=== PATIENT | female | born 1965 | race Caucasian/White ===

== ENCOUNTER → 2019-02-18 | Outpatient (CLI) | payer BC | END | disposition home or self-care (01) | LOC: LABWHC1 15:36 | PROVIDERS: ATTEND Physician Assistant | DX: Z11.1 Encounter for screening for respiratory tuberculosis (principal) | CPT/HCPCS: 36415; 86480 ==

== ENCOUNTER → 2019-09-08 | Outpatient (CLI) | payer MEDICARE ==
--- NOTE | 2019-09-08 13:33 | XR ---
EXAMINATION TYPE: XR knee limited LT DATE OF EXAM: 09/08/2019 COMPARISON: NONE HISTORY: Pain TECHNIQUE: Two views are submitted. FINDINGS: Joint spaces are preserved. Osseous structures are intact. No acute fracture seen. Diffuse osteope marifer. IMPRESSION: 1. No acute fracture or dislocation.
--- NOTE | 2019-09-08 13:34 | XR ---
EXAMINATION TYPE: XR Hip Bilateral Complete DATE OF EXAM: 09/08/2019 COMPARISON: NONE HISTORY: Pain TECHNIQUE: 2 views submitted of each hip FINDINGS: There is no evidence of erosive change or acute fracture. Mild concentric narrowing of the joint space and mild hypertrophic change of the acetabulum. IMPRESSION: 1. Mild arthropathy correlate for femoral acetabular impingement.
== END | disposition home or self-care (01) ==
LOC: RADXRMAIN 12:48
PROVIDERS: ATTEND Family Medicine
DX: M25.551 Pain in right hip (principal); M12.852 Other specific arthropathies, not elsewhere classified, left hip; M12.851 Other specific arthropathies, not elsewhere classified, right hip; M25.552 Pain in left hip; M25.562 Pain in left knee
CPT/HCPCS: 73521

== ENCOUNTER → 2019-10-20 | Outpatient (CLI) | payer MEDICARE ==
[2019-10-20 11:17] LABS: Basophils # (A) 0.1 k/uL (0-0.2); Basophils % (A) 1 %; Eosinophils # (A) 0.2 k/uL (0-0.7); Eosinophils % (A) 3 %; HCT 47.6 % (34.0-46.0); HGB 15.7 gm/dL (11.4-16.0); Lymphocytes # (A) 1.6 k/uL (1.0-4.8); Lymphocytes % (A) 24 %; MCH 30.1 pg (25.0-35.0); MCHC 32.9 g/dL (31.0-37.0); Mean Platelet Volume 7.1; Monocytes # (A) 0.5 k/uL (0-1.0); Monocytes % (A) 7 %; Neutrophils # (A) 4.1 k/uL (1.3-7.7); Neutrophils % (A) 63 %; Platelet Count 326 k/uL (150-450); RBC 5.22 m/uL (3.80-5.40); RDW 14.5 % (11.5-15.5); WBC 6.5 k/uL (3.8-10.6)
[2019-10-20 11:22] LABS: MCV 91.3 fL (80.0-100.0)
[2019-10-20 17:16] LABS: African American GFR (CKD) 96.2 (60.0-200.0); Albumin 4.2 g/dL (3.80-4.90); Albumin/Globulin Ratio 2.1 (1.60-3.17); Anion Gap 4.1 mmol/L (4.00-12.00); BUN/Creat Ratio 8.75 Ratio (12.00-20.00); C Reactive Protein, High Sens 3.35 mg/L (0.000-3.000); Calcium 9.5 mg/dL (8.7-10.3); Carbon Dioxide 25.9 mmol/L (21.6-31.8); Potassium 4.7 mmol/L (3.5-5.5); Total Bilirubin 0.4 mg/dL (0.3-1.2); Total Protein 6.2 g/dL (6.2-8.2)
[2019-10-20 18:07] LABS: Cyclic Citrull Pep IgG Unit >300.0 U/mL; Cyclic Citrullinated Pep IgG POSITIVE (NEGATIVE)
[2019-10-20 18:19] LABS: Hepatitis B Core IgM Non-Reactive (Non-Reactive); Hepatitis B Surface AB- Quant 3.5 mIU/mL; Hepatitis B Surface Antibody Non-Reactive (Non-Reactive); Hepatitis B Surface Antigen Non-Reactive (Non-Reactive); Hepatitis C IgG Antibody Non-Reactive (Non-Reactive)
[2019-10-20 18:42] LABS: Erythrocyte Sedimentation Rate 6 mm/Hr (0-30)
== END | disposition home or self-care (01) ==
LOC: LABWHC1 09:53
PROVIDERS: ATTEND Internal Medicine Rheumatology
DX: M15.0 Primary generalized (osteo)arthritis (principal); M06.9 Rheumatoid arthritis, unspecified
CPT/HCPCS: 36415; 80053; 85025; 85652; 86038; 86141; 86200; 86431; 86480; 86704; 86705; 86706; 86803; 87340

== ENCOUNTER → 2019-11-12 | Outpatient (CLI) | payer MEDICARE ==
--- NOTE | 2019-11-12 14:02 | MR ---
MR left hip without contrast HISTORY: Colon carcinoma, hip pain Multiplanar multisequence imaging through the pelvis with small [id number] images through the left hip Correlation to plain film 09/08/2019 There is no sizable hip joint effusion. Bone marrow signal is normal. No evident erosive change, no f racture or dislocation. Articular cartilage signal is maintained. No evident labral tear. No tendon t ear evident. Origins of the hamstring musculature normal. There is no free fluid in the pelvis. No pe lvic adenopathy. Degenerative disc changes are present in the lower lumbar spine. Uterus and adnexal structures are maintained. Urinary bladder is normal. IMPRESSION: No evident hip abnormality. Degenerative disc changes are noted in the lumbar spine.
== END | disposition home or self-care (01) ==
LOC: RADMRIMAIN 12:41
PROVIDERS: ATTEND Internal Medicine Rheumatology
DX: M25.552 Pain in left hip (principal); M06.852 Other specified rheumatoid arthritis, left hip; Z79.52 Long term (current) use of systemic steroids

== ENCOUNTER 2021-04-10 07:15 | Emergency (ER) | payer MEDICARE ==
[2021-04-10 07:21] VITALS: TEMP 97.8
[2021-04-10] MEDS ORDERED: KETOROLAC 15 MG/ML 1 ML VIAL IVP STA (07:40)
[2021-04-10] MEDS ORDERED: SODIUM CHLORIDE 0.9% 1,000 ML IV STA (07:40)
[2021-04-10] MEDS ORDERED: diphenhydrAMINE 50 MG/ML 1 ML VIAL IVP STA (07:40)
[2021-04-10] MEDS ORDERED: MORPHINE SULFATE 4 MG/ML SYRINGE IV STA (07:40)
[2021-04-10] MEDS ORDERED: ONDANSETRON 4 MG/2 ML VIAL IVP STA (07:40)
[2021-04-10] MEDS ORDERED: FAMOTIDINE 20 MG/2 ML VIAL IV STA (07:41)
--- NOTE | 2021-04-10 07:51 | ED ---
General Adult HPI - General Chief complaint: Abdominal Pain Stated complaint: right side pain Source: patient, RN notes reviewed, old records reviewed Mode of arrival: ambulatory Limitations: no limitations - History of Present Illness Initial comments: Patient is a 55-year-old female with past medical history remarkable for rheumatoid arthritis, prior TIA with residual left-sided weakness, chronic shoulder pain who presents emergency Department complaining of right-sided flank pain. Pain started 10 days ago when she was evaluated here in the emergency department. Workup at that time was negative. She is told she may have a small kidney stone in the past. She states that since that time, she isthat the right flank pain appears to be moving towards her right lower quadrant. States continued nausea, as well as occasional episodes of nonbilious nonbloody emesis. Denies constipation. Has been having normal bowel movements that are nonbloody. Denies any hematuria, dysuria. Denies any breast vaginal discharge or bleeding. No prior history of abdominal surgeries. Denies any fevers, chills, sick contacts. His no other acute complaints at this time. Would Like to be reevaluated for continued abdominal pain.Denies any precipitating factor for her pain. Denies any known palliative or provocative factors. Denies any radiation from her lumbar spine. No recent heavy lifting. - Related Data Home Medications Medication Instructions Recorded Confirmed Multivitamins, Thera [Multivitamin] 1 tab PO DAILY 11/11/13 04/10/21 Cholecalciferol [Vitamin D3] 1,000 units PO DAILY 11/15/13 04/10/21 Citalopram Hydrobromide [CeleXA] 40 mg PO HS 12/03/13 04/10/21 Aspirin EC [Ecotrin] 325 mg PO DAILY 03/31/21 04/10/21 Atorvastatin [Lipitor] 10 mg PO HS 03/31/21 04/10/21 Cyanocobalamin (Vitamin B-12) 1,000 mcg PO DAILY 03/31/21 04/10/21 [Vitamin B-12] L.acidoph,Paracasei, B.lactis 1 cap PO DAILY 03/31/21 04/10/21 [Probiotic] Upadacitinib [Rinvoq] 15 mg PO DAILY 03/31/21 04/10/21 Ketorolac [Toradol] 10 mg PO Q8HR PRN 04/10/21 04/10/21 Metaxalone [Skelaxin] 800 mg PO QID PRN 04/10/21 04/10/21 Previous Rx's Medication Instructions Recorded Ondansetron Odt [Zofran Odt] 4 mg PO Q8HR PRN #10 tab 03/31/21 Dicyclomine [Bentyl] 10 mg PO TID PRN #21 capsule 04/10/21 Famotidine [Pepcid] 10 mg PO DAILY PRN 7 Days #7 tab 04/10/21 HYDROcodone/APAP 5-325MG [Amboy 5] 1 each PO Q6HR PRN 2 Days #8 tab 04/10/21 Mag Hydrox/Al Hydrox/Simeth 30 ml PO BID PRN #400 ml 04/10/21 [Maalox] Ondansetron Odt [Zofran Odt] 4 mg PO Q8HR PRN 3 Days #9 tab 04/10/21 Allergies Allergy/AdvReac Type Severity Reaction Status Date / Time tetracycline [Tetracycline] Allergy Dyspnea Verified 04/10/21 08:46 and Rash fentanyl AdvReac Nausea Verified 04/10/21 08:46 ANTIHISTAMINES AdvReac Rapid Uncoded 04/10/21 08:46 Heart Rate Review of Systems ROS Statement: Those systems with pertinent positive or pertinent negative responses have been documented in the HPI. Review of Systems: CONST: Denies fever EYES: Denies blurry vision ENT: Denies nasal congestion C/V: Denies Chest pain RESP: Denies shortness of breath GI: Endorses abdominal pain : Denies dysuria SKIN: Denies rash. MSK: Denies joint pain. NEURO: Denies headache ROS Other: All systems not noted in ROS Statement are negative. Past Medical History Past Medical History: CVA/TIA, Rheumatoid Arthritis (RA) Additional Past Medical History / Comment(s): STROKE 2005-LEFT SIDE WEAKNESS. CHRONIC PAIN IN SHOULDERS, RT MAINLY.lt wrist wound History of Any Multi-Drug Resistant Organisms: None Reported Past Surgical History: Orthopedic Surgery Additional Past Surgical History / Comment(s): CERVICAL DISCECTOMY, breast augmentation; MULT PAIN PROC, LAST 03/10/14;CARPAL RELEASE LEFT SIDE Past Anesthesia/Blood Transfusion Reactions: No Reported Reaction Additional Past Anesthesia/Blood Transfusion Reaction / Comment(s): FENTANYL CAUSES NAUSEA. Past Psychological History: No Psychological Hx Reported Smoking Status: Current every day smoker Past Alcohol Use History: Rare Past Drug Use History: Marijuana - Past Family History Mother Family Medical History: Deep Vein Thrombosis (DVT) Father Family Medical History: Cancer General Exam - General Exam Comments Initial Comments: General: Appears in mild discomfort secondary to right-sided flank pain. HEAD: Normal with no signs of head trauma. EYES: PERRLA, EOMI, conjunctiva normal, no discharge. ENT: Hearing grossly intact, normal oropharynx. RESPIRATORY: Clear breath sounds bilaterally. No wheezes, rales, or rhonchi. C/V: Regular rate and rhythm. S1 and S2 auscultated, no edema, peripheral pulses 2+ and intact throughout ABD: Abdomen is soft, nondistended. She is minimally tender in the right flank region. No CVA tenderness to percussion. No rebound tenderness. No peritoneal signs. No guarding. EXT: Normal range of motion, no obvious deformity. Patient has no midline lumbar or thoracic spine tenderness to palpation. No paraspinal muscle tende rness to palpation either. SKIN: No rashes or lesions observed on exposed skin. NEURO: Alert and oriented 4. No acute focal deficits. Limitations: no limitations Course Vital Signs 04/10/21 04/10/21 04/10/21 07:17 10:24 11:28 Temperature 97.8 F Pulse Rate 74 90 82 Respiratory 18 20 20 Rate Blood Pressure 172/123 148/84 140/80 O2 Sat by Pulse 97 96 98 Oximetry Medical Decision Making - Medical Decision Making Based on the patient's presentation and physical exam, I'm concerned for an acute intra-abdominal process for current symptoms. We will repeat abdominal laboratory studies today as well as obtain an ultrasound of her kidneys to evalu ate for hydronephrosis. We may repeat CT imaging following labs and workup. Prior CT imaging revealed no signs of kidney stone. Prior workup was unremarkable. Patient was in agreement this plan. She'll receive IV analgesia, as well as IV fluids. Zofran, Benadryl and Pepcid also administered. Renal ultrasound was obtained and showed no signs of obstructive uropathy. No signs of renal stone or hydronephrosis. Laboratory studies were remarkable for normal urine. There is a normal lactic acid. The remaining labs are unremarkable. CT abdomen and pelvis was obtained and revealed acute colitis. There was a delay in obtaining CT imaging secondary to a large number of critical patients require CT imaging. On reevaluation, patient is feeling slightly improved. I did discuss the results with her. I believe it is safer to be discharged home. We discussed a bland diet, as well as GI cocktail for pain control. She is 1 week and, if it is viral colitis it should improve over the next 7-10 days. Strict return precautions were provided. She'll be given a 2 day prescription of Amboy for breakthrough pain, she states that it is bad when she is attempting to sleep. She was in agreement this plan. I believe it is safe for her to be discharged home at this time. I will provide the patient with a prescription for famotidine, Maalox, Zofran ODT, Amboy, Bentyl. I instructed the patient to follow up with their PCP in the next 3 days. I explained that the patient should return to the emergency department if they experience any worsening symptoms. Strict return precautions were discussed with the patient. The patient expressed understanding of these instructions. I answered all questions that the patient had. The patient was discharged home in good condition with their prescriptions and follow up information. - Lab Data Result diagrams: 04/10/21 08:03 04/10/21 09:03 Lab Results 04/10/21 04/10/21 04/10/21 Range/Units 08:03 08:49 09:03 WBC 8.7 (3.8-10.6) k/uL RBC 4.82 (3.80-5.40) m/uL Hgb 15.9 (11.4-16.0) gm/dL Hct 46.7 H (34.0-46.0) % MCV 96.8 (80.0-100.0) fL MCH 33.0 (25.0-35.0) pg MCHC 34.1 (31.0-37.0) g/dL RDW 13.0 (11.5-15.5) % Plt Count 382 (150-450) k/uL MPV 7.2 Neutrophils % 78 % Lymphocytes % 12 % Monocytes % 7 % Eosinophils % 2 % Basophils % 1 % Neutrophils # 6.8 (1.3-7.7) k/uL Lymphocytes # 1.0 (1.0-4.8) k/uL Monocytes # 0.6 (0-1.0) k/uL Eosinophils # 0.1 (0-0.7) k/uL Basophils # 0.1 (0-0.2) k/uL PT (9.0-12.0) sec INR (<1.2) APTT (22.0-30.0) sec Sodium (137-145) mmol/L Potassium (3.5-5.1) mmol/L Chloride (98-107) mmol/L Carbon Dioxide (22-30) mmol/L Anion Gap mmol/L BUN (7-17) mg/dL Creatinine (0.52-1.04) mg/dL Est GFR (CKD-EPI)AfAm (>60 ml/min/1.73 sqM) Est GFR (CKD-EPI)NonAf (>60 ml/min/1.73 sqM) Glucose (74-99) mg/dL Plasma Lactic Acid Evangelist 0.6 L (0.7-2.0) mmol/L Calcium (8.4-10.2) mg/dL Total Bilirubin (0.2-1.3) mg/dL AST (14-36) U/L ALT (4-34) U/L Alkaline Phosphatase (38-126) U/L Total Protein (6.3-8.2) g/dL Albumin (3.5-5.0) g/dL Amylase (30-110) U/L Lipase (23-300) U/L Urine Color Light Yellow Urine Appearance Clear (Clear) Urine pH 7.5 (5.0-8.0) Ur Specific [place] 1.013 (1.001-1.035) Urine Protein Negative (Negative) Urine Glucose (UA) Negative (Negative) Urine Ketones Negative (Negative) Urine Blood Negative (Negative) Urine Nitrite Negative (Negative) Urine Bilirubin Negative (Negative) Urine Urobilinogen <2.0 (<2.0) mg/dL Ur Leukocyte Esterase Negative (Negative) 04/10/21 04/10/21 Range/Units 09:03 09:03 WBC (3.8-10.6) k/uL RBC (3.80-5.40) m/uL Hgb (11.4-16.0) gm/dL Hct (34.0-46.0) % MCV (80.0-100.0) fL MCH (25.0-35.0) pg MCHC (31.0-37.0) g/dL RDW (11.5-15.5) % Plt Count (150-450) k/uL MPV Neutrophils % % Lymphocytes % % Monocytes % % Eosinophils % % Basophils % % Neutrophils # (1.3-7.7) k/uL Lymphocytes # (1.0-4.8) k/uL Monocytes # (0-1.0) k/uL Eosinophils # (0-0.7) k/uL Basophils # (0-0.2) k/uL PT 10.7 (9.0-12.0) sec INR 1.0 (<1.2) APTT 23.2 (22.0-30.0) sec Sodium 133 L (137-145) mmol/L Potassium 4.5 (3.5-5.1) mmol/L Chloride 106 (98-107) mmol/L Carbon Dioxide 22 (22-30) mmol/L Anion Gap 5 mmol/L BUN 13 (7-17) mg/dL Creatinine 0.67 (0.52-1.04) mg/dL Est GFR (CKD-EPI)AfAm >90 (>60 ml/min/1.73 sqM) Est GFR (CKD-EPI)NonAf >90 (>60 ml/min/1.73 sqM) Glucose 117 H (74-99) mg/dL Plasma Lactic Acid Evangelist (0.7-2.0) mmol/L Calcium 8.7 (8.4-10.2) mg/dL Total Bilirubin 0.7 (0.2-1.3) mg/dL AST 17 (14-36) U/L ALT 13 (4-34) U/L Alkaline Phosphatase 63 (38-126) U/L Total Protein 6.4 (6.3-8.2) g/dL Albumin 3.8 (3.5-5.0) g/dL Amylase 43 (30-110) U/L Lipase 77 (23-300) U/L Urine Color Urine Appearance (Clear) Urine pH (5.0-8.0) Ur Specific [place] (1.001-1.035) Urine Protein (Negative) Urine Glucose (UA) (Negative) Urine Ketones (Negative) Urine Blood (Negative) Urine Nitrite (Negative) Urine Bilirubin (Negative) Urine Urobilinogen (<2.0) mg/dL Ur Leukocyte Esterase (Negative) Disposition Clinical Impression: Colitis Disposition: HOME SELF-CARE Condition: Good Prescriptions: Dicyclomine [Bentyl] 10 mg PO TID PRN #21 capsule PRN Reason: Pain Mag Hydrox/Al Hydrox/Simeth [Maalox] 30 ml PO BID PRN #400 ml PRN Reason: Dyspepsia HYDROcodone/APAP 5-325MG [Amboy 5] 1 each PO Q6HR PRN 2 Days #8 tab PRN Reason: Pain Famotidine [Pepcid] 10 mg PO DAILY PRN 7 Days #7 tab PRN Reason: Dyspepsia Ondansetron Odt [Zofran Odt] 4 mg PO Q8HR PRN 3 Days #9 tab PRN Reason: Nausea Is patient prescribed a controlled substance at d/c from ED?: Yes When asked, does pt state using other controlled substances?: No If prescribed controlled substance>3 days was MAPS reviewed?: Prescribed <3 Days If opioid is for acute pain is fill amount 7 days or less?: Yes If Rx opioid, was Start Talking consent form obtained?: Yes Referrals: Nilam Arteaga MD [Primary Care Provider] - 1-2 days
--- NOTE | 2021-04-10 08:41 | US ---
EXAMINATION TYPE: US renals and bladder DATE OF EXAM: 04/10/2021 COMPARISON: CT 03/31/2021 CLINICAL HISTORY: 55-year-old female evaluate for signs of hydronephrosis. Right flank pain. TECHNIQUE: Multiple sonographic images of the kidneys and bladder are obtained. FINDINGS: EXAM MEASUREMENTS: Right Kidney: 10.6 x 4.9 x 4.3 cm Left Kidney: 10.1 x 4.1 x 5.0 cm Right Kidney: Extrarenal pelvis noted. No calyceal dilatation to suggest hydronephrosis. No mass is s een Left Kidney: probable dromedary hump at the midpole. No hydronephrosis. Bladder: Underdistention of the bladder limits evaluation. Bilateral Jets seen: only left IMPRESSION: Only the left ureteral jet is seen during the course of the exam. However, no torri hydronephrosis is apparent on either side.
[2021-04-10 08:54] LABS: Basophils # (A) 0.1 k/uL (0-0.2); Basophils % (A) 1 %; Eosinophils # (A) 0.1 k/uL (0-0.7); Eosinophils % (A) 2 %; HCT 46.7 % (34.0-46.0); HGB 15.9 gm/dL (11.4-16.0); Lymphocytes % (A) 12 %; MCHC 34.1 g/dL (31.0-37.0); MCV 96.8 fL (80.0-100.0); Mean Platelet Volume 7.2; Monocytes # (A) 0.6 k/uL (0-1.0); Monocytes % (A) 7 %; Neutrophils # (A) 6.8 k/uL (1.3-7.7); Neutrophils % (A) 78 %; Platelet Count 382 k/uL (150-450); RBC 4.82 m/uL (3.80-5.40); WBC 8.7 k/uL (3.8-10.6)
[2021-04-10 09:08] LABS: Appearance,Urine Clear (Clear); Bilirubin,Urine Negative (Negative); Blood,Urine Negative (Negative); Color,Urine Light Yellow; Glucose,Urine (UA) Negative (Negative); Ketones,Urine Negative (Negative); Leukocyte Esterase,Urine Negative (Negative); Nitrite,Urine Negative (Negative); PH, Urine 7.5 (5.0-8.0); Protein,Urine Negative (Negative); Specific Gravity,Urine 1.013 (1.001-1.035); Urobilinogen,Urine <2.0 mg/dL (<2.0)
[2021-04-10] MEDS ORDERED: MORPHINE SULFATE 4 MG/ML SYRINGE IVP STA (09:26)
[2021-04-10 09:29] LABS: ALT 13 U/L (4-34); AST 17 U/L (14-36); African American GFR (CKD) >90 (>60 ml/min/1.73 sqM); Albumin 3.8 g/dL (3.5-5.0); Alkaline Phosphatase 63 U/L (38-126); Amylase 43 U/L (30-110); Anion Gap 5 mmol/L; Blood Urea Nitrogen 13 mg/dL (7-17); Calcium 8.7 mg/dL (8.4-10.2); Carbon Dioxide 22 mmol/L (22-30); Chloride 106 mmol/L (98-107); Glucose 117 mg/dL (74-99); Lipase 77 U/L (23-300); Non-African American GFR(CKD) >90 (>60 ml/min/1.73 sqM); Potassium 4.5 mmol/L (3.5-5.1); Sodium 133 mmol/L (137-145); Total Bilirubin 0.7 mg/dL (0.2-1.3); Total Protein 6.4 g/dL (6.3-8.2)
[2021-04-10 09:47] LABS: Partial Thromboplastin Time 23.2 sec (22.0-30.0); Prothrombin Time 10.7 sec (9.0-12.0)
[2021-04-10 10:25] VITALS: RESP 20
--- NOTE | 2021-04-10 11:00 | CT ---
EXAMINATION TYPE: CT abdomen pelvis w con DATE OF EXAM: 04/10/2021 COMPARISON: CT dated 03/31/2021 HISTORY: Right lower quadrant pain. CT DLP: 895.5 mGycm Automated exposure control for dose reduction was used. TECHNIQUE: Helical acquisition of images from the lung bases through the pelvis have been completed. CONTRAST: Performed without Oral Contrast and with IV Contrast, patient injected with 100 mL of Isovue 300. FINDINGS: Breast prosthesis noted on the left. LUNG BASES: Some dependent basilar atelectatic changes are present, no pleural pericardial effusion AORTA: No significant abnormality is appreciated. LIVER/GB: No significant abnormality is appreciated. PANCREAS: No significant abnormality is seen. SPLEEN: No significant abnormality is seen. ADRENALS: No significant abnormality is seen. KIDNEYS: No significant abnormality is seen. REPRODUCTIVE ORGANS: No significant abnormality is seen BOWEL: Diffuse colonic wall thickening with some sparing of the cecum and ascending colon noted. The appendix is normal. High dense oval density within the cecum may be due to medication FREE AIR: No Free Air visible. ASCITES: None visible. PELVIC ADENOPATHY: None visualized. RETROPERITONEAL ADENOPATHY: No Retroperitoneal Adenopathy visible. URINARY BLADDER: No significant abnormality is seen. OSSEOUS STRUCTURES: Degenerative disc changes, facet arthropathy noted in the lumbar spine, disc her niation suspected L5-S1, vacuum phenomenon present within the disc. IMPRESSION: CORRELATE FOR POSSIBLE COLITIS.
[2021-04-10 11:30] VITALS: BP 140/80; PULSE 82
== END 2021-04-10 11:29 | disposition home or self-care (01) ==
LOC: EC 07:15
DX: K52.9 Noninfective gastroenteritis and colitis, unspecified (principal); M06.9 Rheumatoid arthritis, unspecified; F17.200 Nicotine dependence, unspecified, uncomplicated; F12.90 Cannabis use, unspecified, uncomplicated; Z79.82 Long term (current) use of aspirin; Z86.73 Personal history of transient ischemic attack (TIA), and cerebral infarction without residual deficits
CPT/HCPCS: 99284; 96374; 96375 ×4; 96376; 96361 ×2; 36415; 80053; 82150; 83605; 83690; 85025; 85610; 85730; 81003; 76770; 74177; J2270; J1200; J2405; J1885; Q9967

== ENCOUNTER 2022-08-12 11:47 | Emergency (ER) | payer MEDICARE ==
[2022-08-12] MEDS ORDERED: MORPHINE SULFATE 4 MG/ML SYRINGE IM STA (12:14)
[2022-08-12] MEDS ORDERED: LIDOCAINE 5% PATCH TOPICAL STA (12:15)
--- NOTE | 2022-08-12 12:26 | ED ---
Neck Injury/Pain HPI - General Chief Complaint: Neck Pain/Injury Stated Complaint: Neck pain Time Seen by Provider: 08/12/22 12:01 Source: patient, family (Left trapezius) Mode of arrival: ambulatory Limitations: no limitations - History of Present Illness Initial Comments: 57-year-old well-appearing female presents to the emergency room with complaints of 1 week of increasing left lateral neck pain. Denies any injuries. States that it developed while at work. Pain and tightness along the left trapezius muscle. Patient does have a history of chronic neck pain with 2 cervical fusions, last one was 10 years ago. She did see her primary care Dr. Arteaga on who recommended baclofen and topical pain relievers in addition to her RA medications. Patient was hoping to get an MRI today. MD Complaint: neck pain -: week(s) (1) Radiation: left lateral Severity scale (1-10): 9 Consistency: constant Improves With: remaining still Worsens With: movement of neck Context: other (Chronic with 2 cervical fusions surgeries) Associated Symptoms: none Treatments Prior to Arrival: other (Baclofen, [id number] topical pain patches) - Related Data Home Medications Medication Instructions Recorded Confirmed Multivitamins, Thera [Multivitamin] 1 tab PO DAILY 11/11/13 04/10/21 Cholecalciferol [Vitamin D3] 1,000 units PO DAILY 11/15/13 04/10/21 Citalopram Hydrobromide [CeleXA] 40 mg PO HS 12/03/13 04/10/21 Aspirin EC [Ecotrin] 325 mg PO DAILY 03/31/21 04/10/21 Atorvastatin [Lipitor] 10 mg PO HS 03/31/21 04/10/21 Cyanocobalamin (Vitamin B-12) 1,000 mcg PO DAILY 03/31/21 04/10/21 [Vitamin B-12] L.acidoph,Paracasei, B.lactis 1 cap PO DAILY 03/31/21 04/10/21 [Probiotic] Upadacitinib [Rinvoq] 15 mg PO DAILY 03/31/21 04/10/21 Ketorolac [Toradol] 10 mg PO Q8HR PRN 04/10/21 04/10/21 Metaxalone [Skelaxin] 800 mg PO QID PRN 04/10/21 04/10/21 Previous Rx's Medication Instructions Recorded Ondansetron Odt [Zofran Odt] 4 mg PO Q8HR PRN #10 tab 03/31/21 Dicyclomine [Bentyl] 10 mg PO TID PRN #21 capsule 04/10/21 Famotidine [Pepcid] 10 mg PO DAILY PRN 7 Days #7 tab 04/10/21 HYDROcodone/APAP 5-325MG [Estill 5] 1 each PO Q6HR PRN 2 Days #8 tab 04/10/21 Mag Hydrox/Al Hydrox/Simeth 30 ml PO BID PRN #400 ml 04/10/21 [Maalox] Ondansetron Odt [Zofran Odt] 4 mg PO Q8HR PRN 3 Days #9 tab 04/10/21 Allergies Allergy/AdvReac Type Severity Reaction Status Date / Time tetracycline [Tetracycline] Allergy Dyspnea Verified 08/12/22 11:58 and Rash fentanyl AdvReac Nausea Verified 08/12/22 11:58 ANTIHISTAMINES AdvReac Rapid Uncoded 08/12/22 11:58 Heart Rate Review of Systems ROS Statement: Those systems with pertinent positive or pertinent negative responses have been documented in the HPI. ROS Other: All systems not noted in ROS Statement are negative. Past Medical History Past Medical History: CVA/TIA, Rheumatoid Arthritis (RA) Additional Past Medical History / Comment(s): STROKE 2004-LEFT SIDE WEAKNESS. CHRONIC PAIN IN SHOULDERS, RT MAINLY.lt wrist wound History of Any Multi-Drug Resistant Organisms: None Reported Past Surgical History: Orthopedic Surgery Additional Past Surgical History / Comment(s): CERVICAL DISCECTOMY, breast augmentation; MULT PAIN PROC, LAST 03/10/14;CARPAL RELEASE LEFT SIDE Past Anesthesia/Blood Transfusion Reactions: No Reported Reaction Additional Past Anesthesia/Blood Transfusion Reaction / Comment(s): FENTANYL CAUSES NAUSEA. Past Psychological History: No Psychological Hx Reported Smoking Status: Current every day smoker Past Alcohol Use History: Rare Past Drug Use History: Marijuana - Past Family History Mother Family Medical History: Deep Vein Thrombosis (DVT) Father Family Medical History: Cancer General Exam Limitations: no limitations General appearance: alert, in no apparent distress Head exam: Present: atraumatic Eye exam: Present: normal appearance. Absent: scleral icterus, conjunctival injection, periorbital swelling Neck exam: Present: tenderness, other (pain with palpation left trapezius, muscle tightness). Absent: meningismus, lymphadenopathy, thyromegaly Respiratory exam: Absent: respiratory distress, accessory muscle use Cardiovascular Exam: Present: regular rate Extremities exam: Present: full ROM Neurological exam: Present: alert, oriented X3 Psychiatric exam: Present: normal affect, normal mood Skin exam: Present: warm, dry, normal color. Absent: cyanosis, diaphoretic, petechiae, pallor Course Vital Signs 08/12/22 11:56 Temperature 97.9 F Pulse Rate 80 Respiratory 18 Rate Blood Pressure 166/97 O2 Sat by Pulse 99 Oximetry Medical Decision Making - Medical Decision Making Was pt. sent in by a medical professional or institution (, PA, [employer], urgent care, hospital, or long-term...) When possible be specific @ -No Did you speak to anyone other than the patient for history (EMS, parent, family, police, friend...)? What history was obtained from this source @ -No Did you review nursing and triage notes (agree or disagree)? Why? @ -I reviewed and agree with nursing and triage notes Were old charts reviewed (outside hosp., previous admission, EMS record, old EKG, old radiological studies, urgent care reports/EKG's, long-term records)? Report findings @ -yes xr cspine 2015 Differential Diagnosis (chest pain, altered mental status, abdominal pain women, abdominal pain men, vaginal bleeding, weakness, fever, dyspnea, syncope, headache, dizziness, GI bleed, back pain, seizure, CVA, palpatations, mental health, musculoskeletal)? @ -cervical strain, torticollis, dystonic reaction, epidural abscess, musculoskeletal pain EKG interpreted by me (3pts min.). @ -n/a X-rays interpreted by me (1pt min.). @ -None done CT interpreted by me (1pt min.). @ -None done U/S interpreted by me (1pt. min.). @ -None done What testing was considered but not performed or refused? (CT, X-rays, U/S, labs)? Why? @ -xr considered, however patient denies trauma, no cervical spine or vertebral tenderness. Pain is left sided trapezius consistent with torticollis. What meds were considered but not given or refused? Why? @ -None Did you discuss the management of the patient with other professionals (professionals i.e. , PA, [employer], lab, RT, psych nurse, professor of social work, instructional resource teacher, teacher, security officer supervisor, case fitter)? Give summary @ -No Was smoking cessation discussed for >3mins.? @ -No Was critical care preformed (if so, how long)? @ -No Were there social determinants of health that impacted care today? How? (Homelessness, low income, unemployed, alcoholism, drug addiction, transportation, low edu. Level, literacy, decrease access to med. care, [facility], rehab)? @ -No Was there de-escalation of care discussed even if they declined (Discuss DNR or withdrawal of care, Hospice)? DNR status @ -No What co-morbidities impacted this encounter? (DM, HTN, Smoking, COPD, CAD, Cancer, CVA, ARF, Chemo, Hep., AIDS, mental health diagnosis, sleep apnea, morbid obesity)? @ -Degenerative disc disease, rheumatoid arthritis, cervical fusion 2, CVA Was patient admitted / discharged? Hospital course, mention meds given and route, prescriptions, significant lab abnormalities, going to OR and other pertinent info. @ -Discharged 57-year-old well-appearing female presents to the emergency room with complaints of 1 week of increasing left lateral neck pain. Denies any injuries. States that it developed while at work last week. Patient does have a history of chronic neck pain with 2 cervical fusions, last one was 10 years ago. She did see her primary care Dr. Arteaga on who recommended baclofen and topical pain relievers in addition to her RA medications. Patient was hoping to get an MRI today. Patient denies any trauma. No midline tenderness. No fevers. Pain and tightness along the left trapezius muscle worse with palpation. No new focal neurological deficits. Cervical spine surgery 2014. X-ray of the neck performed 05/09/2015 showing stable and satisfactory alignment C6-C7 level. Anterior fusion plate C6-C7 redemonstrated. Patient was given a Lidoderm patch, states that 5% patches work better for her pain than [id number] ones. States her insurance will not pay for the 5% patches. She was also given a shot of morphine for pain. Directed to continue her baclofen. She is agreeable to be discharged home with family and directed to follow up with Dr. Arteaga this week for possible MRI. Case discussed with Dr. Bazzi Undiagnosed new problem with uncertain prognosis? @ -No Drug Therapy requiring intensive monitoring for toxicity (Heparin, Nitro, Insulin, Cardizem)? @ -No Were any procedures done? @ -No Diagnosis/symptom? @ -Torticollis, chronic neck pain Acute, or Chronic, or Acute on Chronic? @ -Acute on chronic Uncomplicated (without systemic symptoms) or Complicated (systemic symptoms)? @ -Uncomplicated Side effects of treatment? @ -No Exacerbation, Progression, or Severe Exacerbation? @ -No Poses a threat to life or bodily function? How? (Chest pain, [place], [place], pneumonia, PE, COPD, DKA, ARF, appy, cholecystitis, CVA, Diverticulitis, Homicidal, Suicidal, threat to staff... and all critical care pts) @ -No Disposition Clinical Impression: Strain of neck muscle, Chronic neck pain with history of cervical spinal surgery Disposition: HOME SELF-CARE Condition: Good Instructions (If sedation given, give patient instructions): Spasmodic Torticollis (ED) Additional Instructions: Continue with your baclofen and topical pain relievers. Follow-up with your primary care doctor this week for possible MRI. Is patient prescribed a controlled substance at d/c from ED?: No Referrals: Nilam Arteaga MD [Primary Care Provider] - 1-2 days Time of Disposition: 12:22
[2022-08-12 13:04] VITALS: BP 142/93; PULSE 56; RESP 16; TEMP 98.6
== END 2022-08-12 13:04 | disposition home or self-care (01) ==
LOC: EC 11:47
DX: S16.1XXA Strain of muscle, fascia and tendon at neck level, initial encounter (principal); G89.29 Other chronic pain; M43.6 Torticollis; M06.9 Rheumatoid arthritis, unspecified; F17.200 Nicotine dependence, unspecified, uncomplicated; F12.90 Cannabis use, unspecified, uncomplicated; Z79.82 Long term (current) use of aspirin; Z79.899 Other long term (current) drug therapy; Z88.1 Allergy status to other antibiotic agents; Z88.8 Allergy status to other drugs, medicaments and biological substances; Z86.73 Personal history of transient ischemic attack (TIA), and cerebral infarction without residual deficits; X58.XXXA Exposure to other specified factors, initial encounter; Y99.0 Civilian activity done for income or pay
CPT/HCPCS: 99284; 96372; J2270

== ENCOUNTER → 2024-05-21 | Outpatient (CLI) | payer MEDICARE ==
--- NOTE | 2024-05-21 10:50 | XR ---
EXAMINATION TYPE: XR lumbosacral spine min 4V DATE OF EXAM: 05/21/2024 CLINICAL INDICATION: Female, 59 years old with history of M54.59 back pain, pain TECHNIQUE: Frontal, lateral, and oblique images of the lumbar spine are obtained. COMPARISON: CT abdomen and pelvis April 10, 2021 FINDINGS: There are 5 lumbar type vertebral bodies identified. The lumbar spine shows satisfactory alignment without evidence of acute fracture or dislocation. Vertebral body heights are within normal limits. Moderate to severe disc space narrowing at L2-L3, L4-L5, and L5-S1 levels is redemonstrated. Mild to moderate multilevel anterior and lateral spurring is redemonstrated. Overlying arterial vasc ular calcification again seen. IMPRESSION: As above. [facility], , 05/21/2024 10:48 AM
== END | disposition home or self-care (01) ==
LOC: RADXRMAIN 09:58
PROVIDERS: ATTEND Family Medicine
DX: M51.17 Intervertebral disc disorders with radiculopathy, lumbosacral region (principal); M47.27 Other spondylosis with radiculopathy, lumbosacral region; R20.2 Paresthesia of skin; M62.838 Other muscle spasm
CPT/HCPCS: 72110

== ENCOUNTER → 2024-05-29 | Outpatient (CLI) | payer MEDICARE ==
--- NOTE | 2024-05-29 19:02 | MR ---
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 COMPARISONS: Lumbosacral spine radiograph 05/21/2024, CT abdomen and pelvis 04/10/2021, 03/31/2021. TECHNIQUE: Multi planar, multi sequence imaging was performed utilizing: T1-weighted, T2-weighted, a nd turbo inversion recovery imaging of the lumbar spine. The patient was not given contrast. FINDINGS: The lumbar vertebral bodies do have preserved heights and alignment. Multilevel disc orlando ccation with disc height loss present. Most pronounced involving the lower lumbar spine. Multilevel a nterior osteophytosis. Multilevel type II Modic changes. Small Schmorl's nodes without surrounding ed javier involving the endplates around the T11-T12 disc. The conus medullaris and the distal spinal cord do appear unremarkable with regards to their signal intensity and morphology. T12-L1: Right central/paracentral disc protrusion with caudal extrusion approximately 8 mm in the pos terior cortex of the L1 vertebral body. Additionally there is cranial extrusion approximately 1.3 cm above the posterior cortex of the T12 vertebral body. There is moderate central canal stenosis with c lose proximation to the spinal cord at this level. No spinal cord signal change identified. There is abutment of some of the traversing nerve roots. No significant neural foraminal stenosis. L1-L2: Broad-based disc bulge with bilateral facet uptake attributed to mild central canal stenosis. Mild left and moderate right neural foraminal stenosis. L2-L3: Left paracentral disc protrusion with caudal extrusion approximately 1.3 cm long the posterio r cortex of the L3 vertebral body. This is superimposed upon a broad-based disc bulge. Ligamentum fla vum buckling and bilateral facet arthropathy demonstrated. Prominent posterior epidural fat. Results in moderate central canal stenosis. L3-L4: Left paracentral disc protrusion with caudal migration of material along the posterior cortex of the L4 vertebral body approximately 1.2 cm. This is superimposed upon a broad-based disc bulge wi th annular fissure. Ligamentum flavum buckling and bilateral facet arthropathy. Prominent posterior e pidural fat. This contributes to moderate central canal stenosis. There is abutment of the traversing left-sided nerve roots. Moderate left and [id number] right neural foraminal stenosis. L4-L5: Central disc protrusion with annular fissure superimposed upon a broad-based disc bulge. There is ligamentum flavum buckling and bilateral facet arthropathy. This contributes to moderate central canal stenosis. There is close proximity of the traversing nerve roots. Moderate to severe bilateral neural foraminal stenosis. L5-S1: Central disc protrusion with annular fissure superimposed upon a broad-based disc bulge result ing in moderate central canal stenosis with abutment of the exiting bilateral L5 nerve roots. Bilater al facet arthropathy with moderate to severe bilateral neural foraminal stenosis. Other significant findings: None. IMPRESSION: Advanced multilevel disc degeneration with associated osteoarthritic changes with multilevel disc her niations as described above. [facility], , 05/29/2024 6:59 PM
== END | disposition home or self-care (01) ==
LOC: RADMRIMAIN 14:30
PROVIDERS: ATTEND Family Medicine
DX: M47.26 Other spondylosis with radiculopathy, lumbar region (principal); M62.462 Contracture of muscle, left lower leg; M51.16 Intervertebral disc disorders with radiculopathy, lumbar region; M99.73 Connective tissue and disc stenosis of intervertebral foramina of lumbar region; M48.061 Spinal stenosis, lumbar region without neurogenic claudication; R20.2 Paresthesia of skin
CPT/HCPCS: 72148

== ENCOUNTER → 2024-05-31 | Outpatient (CLI) | payer MEDICARE ==
--- NOTE | 2024-05-31 15:13 | CTL ---
EXAMINATION TYPE: CT Low Dose Lung DATE OF EXAM: 05/31/2024 2:24 PM COMPARISON: None. 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 TECHNIQUE: Low dose computed tomography scan was performed through the chest at 1 mm thick sections a nd reconstructed images in the coronal plane at 1 mm thick sections. Contrast used: mL of , (none if empty) Oral contrast used: (none if empty) CT DLP: 91.0 mGycm, Automated exposure control for dose reduction was used. CT CTDI: 2.7 mGy, Automated exposure control for dose reduction was used. FINDINGS: LUNG NODULES: None. LUNGS: COPD: Severity: None Fibrosis: Severity: None Lymph nodes: None Other findings: None RIGHT PLEURAL SPACE: Effusion: None Calcification: None Thickening: None Pneumothorax: None LEFT PLEURAL SPACE: Effusion: None Calcification: None Thickening: None Pneumothorax: None HEART: Other: Ascending thoracic aorta at the level the main pulmonary artery measures 3.8 cm. The main pul monary artery at the bifurcation measures 2.8 cm. Heart Size: Normal Coronary calcification: No significant coronary artery calcifications. Pericardial effusion: None OTHER FINDINGS: Upper abdomen: Normal Bony thorax: Normal Supraclavicular region: Normal Breast prosthesis is evident on the left. IMPRESSION: No suspicious changes to suggest primary or metastatic neoplasm FOLLOW UP CT CHEST RECOMMENDATION: Follow-up low-dose CT chest one year CT LUNG RAD: Lung-Rad 2 Benign Appearance or Behavior [facility], , 05/31/2024 3:10 PM
== END | disposition home or self-care (01) ==
LOC: RADCTMAIN 13:46
PROVIDERS: ATTEND Family Medicine
DX: Z12.2 Encounter for screening for malignant neoplasm of respiratory organs (principal); F17.210 Nicotine dependence, cigarettes, uncomplicated
CPT/HCPCS: 71271

== ENCOUNTER → 2024-09-10 | Outpatient (CLI) | payer MEDICARE ==
--- NOTE | 2024-09-11 18:00 | MR ---
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 COMPARISON: Cervical spine radiograph 05/09/2015, 12/19/2014, 09/16/2014, MR cervical spine 08/19/2014, 08/19/2013. TECHNIQUE: Multi planar, multi sequence imaging was performed of the cervical spine. No Gadolinium wa s given. FINDINGS: Alignment: The cervical vertebral bodies have preserved heights. Development of grade 1 anterolisthes is of C3 on C4 and C4-C5. Prominent anterior osteophyte at C4-C5. Bones: Postsurgical changes from anterior cervical fusion with C6-C7 with intervertebral hardware. Th is creates susceptibility artifact which limits evaluation. Appears intact. There is ossific fusion o f the C5-C6 disc. Edema identified within the right anterior prevertebral space at the C5 level. Cord: The spinal cord is unremarkable with regards to their signal intensity and morphology. Discs: Multilevel disc desiccation is present. C2-C3: Broad-based disc bulge with minimal effacement of the anterior thecal sac. No significant spin al canal stenosis. Bilateral facet arthropathy. The left neural foramen is patent. Mild right neural foraminal stenosis. C3-C4: Broad-based disc bulge with uncovertebral joint hypertrophy. Resultant [id number] spinal canal stenosis. Severe left and moderate to severe right neural foraminal stenosis. C4-C5: Broad-based disc bulge with uncovertebral joint hypertrophy. Mild to moderate spinal canal sailaja nosis. Severe left and moderate right neural foraminal stenosis. C5-C6: Partial ossific fusion. No significant spinal canal stenosis. No significant neural foraminal stenosis. C6-C7: Partial ossific fusion. No significant spinal canal stenosis. Uncovertebral joint hypertrophy. Mild bilateral neural foraminal stenosis. C7-T1: No significant disc pathology. No spinal canal stenosis. Uncovertebral joint hypertrophy. Mild bilateral neural foramen stenosis. Other: None. IMPRESSION: Postsurgical changes from ACDF C6-C7 with ossific fusion at C5-C6 from prior fusion. Development of g rade 1 anterolisthesis of C3 on C4 and C4 on C5. Mild right anterior prevertebral space edema at C5. Multilevel degenerative disc disease and osteoarthritic changes of the upper cervical spine as descri bed above. [facility], , 09/11/2024 5:58 PM
== END | disposition home or self-care (01) ==
LOC: RADMRIMAIN 14:44
PROVIDERS: ATTEND Neurological Surgery
DX: M50.30 Other cervical disc degeneration, unspecified cervical region (principal); G95.9 Disease of spinal cord, unspecified; M43.12 Spondylolisthesis, cervical region; R60.0 Localized edema; Z98.1 Arthrodesis status
CPT/HCPCS: 72141

== ENCOUNTER → 2024-09-13 | Outpatient (CLI) | payer MEDICARE ==
--- NOTE | 2024-09-13 12:59 | MR ---
INDICATION: Patient age:Female; 59 years old; Reason for study: M62.462 CONTRACTURE OF MUSCLE, LEFT LOWER LEG M54.; LOC[facility]IN [facility]. COMPARISON: MR cervical spine 09/10/2024, MRI lumbar spine 05/29/2024. TECHNIQUE: Multi planar, multi sequence imaging was performed utilizing: T1-weighted, T2-weighted, an d turbo inversion recovery imaging of the thoracic spine. The patient was not given Gadolinium. FINDINGS: The thoracic vertebral bodies have preserved heights and alignment. Multilevel type I Modic changes o f the mid thoracic spine. Most prominently involving the T6-T9 vertebral bodies. Multilevel small Andreas morl nodes. DISH of the mid to lower thoracic spine. Multilevel disc desiccation and disc height loss . Thoracic spinal cord appears unremarkable. No significant spinal canal or neural foraminal stenosis at T1-T2, T3-T4, T4-T5. Broad based eccentric left disc bulge at T2-T3. No significant spinal canal stenosis. No significant neural foraminal stenosis. Small right paracentral disc protrusion without significant effacement of the anterior thecal sac at T5-T6. No spinal canal stenosis. No neural foramina stenosis. Broad-based disc bulge without significant spinal canal stenosis at T6-T7. No significant neuroforami nal stenosis. Eccentric leftward broad based disc bulge with effacement of the anterior thecal sac and abutment of the ventral spinal cord at T7-T8. Resultant mild spinal canal stenosis. Mild left neural foraminal st enosis. The right neural foramen is patent. Eccentric right disc bulge with central small disc protrusion at T8-T9. There is effacement of the an terior thecal sac. Mild spinal canal stenosis. Mild to moderate right neural foraminal stenosis. The left neural foramen is patent. Broad-based disc bulge at T9-T10 with mild effacement of the anterior thecal sac. Mild spinal canal s tenosis. Moderate bilateral neural foraminal stenosis. Broad-based disc bulge with ligamentum flavum buckling resulting in mild to moderate spinal canal sailaja nosis at T10-T11. Mild bilateral neural foraminal stenosis. Broad-based disc bulge with ligamentum flavum buckling resulting in mild to moderate spinal canal sailaja nosis at T11-T12. Mild bilateral neural foraminal stenosis. Central/right paracentral disc protrusion at T12-L1 with superior migration disc material approximate ly 1.5 cm long the posterior cortex of the T12 vertebral body. Results in mild spinal canal stenosis. No significant neural foraminal stenosis. Similar prior exam. Postsurgical changes from anterior cervical fusion C6-C7. IMPRESSION: Advanced multilevel degenerative disc disease of the thoracic spine as described above. [facility], , 09/13/2024 12:56 PM
== END | disposition home or self-care (01) ==
LOC: RADMRIMAIN 11:18
PROVIDERS: ATTEND Neurological Surgery
DX: M51.04 Intervertebral disc disorders with myelopathy, thoracic region (principal); M47.14 Other spondylosis with myelopathy, thoracic region
CPT/HCPCS: 72146